=== PATIENT | female | born 1980 | race Two or more races ===

== ENCOUNTER 2016-12-26 12:46 | Emergency (ER) | payer OTHER ==
[2016-12-26 12:55] VITALS: TEMP 98.1; BMI 23.9
[2016-12-26] MEDS ORDERED: KETOROLAC TROMETHAMINE 30 MG/1 ML VIAL IVPUSH ONE (13:38)
[2016-12-26] MEDS ORDERED: METOCLOPRAMIDE HCL INJECTION 10 MG/2 ML VIAL IVPB ONE (13:38)
[2016-12-26] MEDS ORDERED: SODIUM CHLORIDE 1,000 ML IV STA (13:38)
[2016-12-26] MEDS ORDERED: KETOROLAC TROMETHAMINE 30 MG/1 ML VIAL ONE (13:40)
[2016-12-26] MEDS ORDERED: METOCLOPRAMIDE HCL INJECTION 10 MG/2 ML VIAL ONE (13:40)
[2016-12-26 14:19] LABS: URINE APPEARANCE CLEAR; URINE BILIRUBIN NEGATIVE (NEGATIVE); URINE COLOR STRAW; URINE GLUCOSE (UA) NEGATIVE (NEGATIVE); URINE KETONE NEGATIVE (NEGATIVE); URINE LEUK ESTERASE NEGATIVE (NEGATIVE); URINE NITRITE NEGATIVE (NEGATIVE); URINE PROTEIN NEGATIVE (NEGATIVE); URINE UROBILINOGEN NEGATIVE E.U./dl (0.2-1.0)
[2016-12-26 14:22] LABS: URINE BLOOD 1+ (NEGATIVE)
--- NOTE | 2016-12-26 14:33 | PDOC ---
History of Present Illness - General Chief Complaint: Headache Stated Complaint: HEADACHE, ARM PAIN Time Seen by Provider: 12/26/16 13:27 History Source: Patient Exam Limitations: No Limitations - History of Present Illness Initial Comments: 12/26/16 13:33 36-year-old female with history of migraines followed by Dr. Milligan presents to the ED with complaints of occipital throbbing pressure for the past 2 days unrelieved with serous that. Patient states has had headaches worse than this in the past associated with nausea and lightheadedness but could not get to see Dr. Milligan and so came to the ER. Patient also complaining of left wrist pain secondary to carpal tunnel and requesting medicine for the discomfort. Patient states is an appointment with orthopedist on the of this month. Patient has no other complaints different from previous episodes. Patient denies fever, chills, recent head injury, recent illness, visual changes, or neck stiffness. Timing/Duration: reports: constant Severity: Yes: moderate Associated Symptoms: reports: nausea/vomiting. denies: numbness in legs/feet, paresthesia, weakness Past History - Past Medical History Allergies/Adverse Reactions: Allergies Allergy/AdvReac Type Severity Reaction Status Date / Time Shellfish Allergy Rash Verified 12/26/16 14:20 Home Medications: Ambulatory Orders NK [No Known Home Medication] 12/26/16 Asthma: No Diabetes: No HTN: No Hypercholesterolemia: No Suicide Attempt (Hx): No Thyroid Disease: Yes (HYPO) Other medical history: MIGRAINES, VERTIGO - Surgical History Cholecystectomy: Yes - Reproductive History LMP Normal: Yes Is Patient Now?: No Spontaneous : 0 - Immunization History Immunization Up to Date: Yes - Psycho/Social/Smoking Cessation Hx Anxiety: Yes Suicidal Ideation: No Smoking Status: No Smoking History: Never smoked Have you smoked in the past 12 months: No Number of Cigarettes Smoked Daily: 0 Hx Alcohol Use: No Drug/Substance Use Hx: No Substance Use Type: None Patient Lives Alone: No Lives with/in: spouse/SO Neuro Specific PMHX - Complaint Specific PMHX Migraine: Yes Review of Systems - Review of Systems Able to Perform ROS?: Yes Constitutional: No: Symptoms Reported HEENTM: No: Symptoms Reported Respiratory: No: Symptoms reported Cardiac (ROS): Yes: Lightheadedness ABD/GI: Yes: Nausea : No: Symptoms Reported Musculoskeletal: No: Symptoms Reported Integumentary: No: Symptoms Reported Neurological: Yes: Headache Endocrine: No: Symptoms Reported Hematologic/Lymphatic: No: Symptoms Reported *Physical Exam - Vital Signs Last Vital Signs Temp Pulse Resp BP Pulse Ox 98.1 F 71 18 134/86 99 12/26/16 12:50 12/26/16 12:50 12/26/16 12:50 12/26/16 12:50 12/26/16 12:50 - Physical Exam General Appearance: Yes: Nourished, Appropriately Dressed. No: Apparent Distress HEENT: positive: EOMI, KIRTI, TMs Normal, Pharynx Normal. negative: Pale Conjunctivae Neck: positive: Normal Thyroid, Supple. negative: Tender, Decreased range of motion Cardiovascular: positive: Regular Rhythm, Regular Rate. negative: Murmur Gastrointestinal/Abdominal: positive: Soft. negative: Tenderness Extremity: positive: Normal Capillary Refill Integumentary: positive: Normal Color, Warm, Moist Neurologic: positive: Motor Strength 5/5 (ambulatory) ED Treatment Course - ADDITIONAL ORDERS Additional order review: Laboratory Results 12/26/16 14:00 Urine Color Straw Urine Appearance Clear Urine pH 6.0 Ur Specific [place] 1.005 Urine Protein Negative Urine Glucose (UA) Negative Urine Ketones Negative Urine Blood 1+ H Urine Nitrite Negative Urine Bilirubin Negative Urine Urobilinogen Negative Ur Leukocyte Esterase Negative Urine HCG, Qual Negative Medical Decision Making - Medical Decision Making 12/26/16 13:38 Patient with history of migraines and atypical presentation presents with occipital pressure associated with nausea and lightheadedness. Patient appears set for the past 2 days with minimal improvement. Patient is followed by Dr. Milligan neurologist. Patient exam had no neural focal deficits and complaining of light sensitivity during my exam. Patient ordered for urine since she was unaware of her status and patient will receive Toradol, Reglan and IV fluids. 12/26/16 14:39 Laboratory Tests 12/26/16 14:00 Urine Blood 1+ H Urine Nitrite Negative Urine HCG, Qual Negative 12/26/16 15:26 Patient states feeling much better with no complaints presently. Will discharge patient home to continue with fioricet and follow-up with neurologist. *DC/Admit/Observation/Transfer Diagnosis at time of Disposition: Migraine Qualifiers: Migraine type: without aura Status migrainosus presence: without status migrainosus Intractability: intractable Qualified Code(s): G43.019 - Migraine without aura, intractable, without status migrainosus - Discharge Dispostion Disposition: HOME Condition at time of disposition: Improved - Referrals Referrals: Yael Dent MD [Staff Physician] - - Patient Instructions Printed Discharge Instructions: DI for Migraine Additional Instructions: Please avoid triggers and try to stay in a cool quite dark place for the next 24 hours to avoid rebound migraine. Continue with her medication prescribed by your neurologist and follow-up with the orthopedist as scheduled next week. Return to ED if symptoms return or worsen
[2016-12-26 14:51] LABS: URINE BACTERIA FEW /hpf (NONE SEEN); URINE RBC <1 /hpf (0-3); URINE WBC 1 /hpf (3-5)
[2016-12-26 15:41] VITALS: BP 114/73; PULSE 77
== END 2016-12-26 15:40 | disposition home or self-care (01) ==
LOC: JER 12:46
PROC: 3E0337Z Introduction of Electrolytic and Water Balance Substance into Peripheral Vein, Percutaneous Approach (ICD-10-PCS; principal; 2016-12-26)
PROC: 3E0333Z Introduction of Anti-inflammatory into Peripheral Vein, Percutaneous Approach (ICD-10-PCS; 2016-12-26)
PROC: 3E033GC Introduction of Other Therapeutic Substance into Peripheral Vein, Percutaneous Approach (ICD-10-PCS; 2016-12-26)
DX: G43.019 Migraine without aura, intractable, without status migrainosus (principal); G56.02 Carpal tunnel syndrome, left upper limb; E03.9 Hypothyroidism, unspecified
CPT/HCPCS: 81003; 81015; 84703; 99282-25

== ENCOUNTER 2017-04-02 02:55 | Emergency (ER) | payer OTHER ==
[2017-04-02 03:16] VITALS: BP 144/101; PULSE 76; TEMP 98.3; BMI 24.7
--- NOTE | 2017-04-02 03:55 | PDOC ---
History of Present Illness - General Chief Complaint: Pain Stated Complaint: ABDOMINAL PAIN Time Seen by Provider: 04/02/17 03:03 - History of Present Illness Initial Comments: 04/02/17 03:42 CHIEF COMPLAINT: suprapubic pain HISTORY OF PRESENT ILLNESS: 36 yo F with no PMH presents to ED with suprapubic pain x 2 hours. Patient states she woke up with cramping to her lower abdomen that "almost feels like contractions." She states that she took Tylenol approximately 1 hour ago which "took the edge off the pain." She denies any vaginal bleeding, hematuria, dysuria, or urinary frequency. Her LMP was . PAST MEDICAL HISTORY: Denies past medical history FAMILY HISTORY: Denies SOCIAL HISTORY: Denies tobacco, alcohol, illicit drug use. SURGICAL HISTORY: Denies ALLERGIES: acetaminophen, oxycodone, shellfish REVIEW OF SYSTEMS General/Constitutional: Denies fever or chills. Denies weakness, weight change. HEENT: Denies change in vision. Denies ear pain or discharge. Denies sore throat. Cardiovascular: Denies chest pain or shortness of breath. Respiratory: Denies cough, wheezing, or hemoptysis. Gastrointestinal: Lower abdominal pain. Denies nausea, vomiting, diarrhea or constipation. Denies rectal bleeding. Genitourinary: Denies dysuria, frequency, or change in urination. Musculoskeletal: Denies joint or muscle swelling or pain. Denies neck or back pain. Skin and breasts: Denies rash or easy bruising. Neurologic: Denies headache, vertigo, loss of consciousness, or loss of sensation. PHYSICAL EXAM General Appearance: Well-appearing, appropriately dressed. No apparent distress. HEENT: EOMI, PERRLA. Respiratory/Chest: Lungs CTAB. Cardiovascular: RRR. S1, S2. Gastrointestinal/Abdominal: Midsuprapubic tenderness. Normal bowel sounds. Abdomen soft, non-distended. No tenderness or rebound tenderness. No organomegaly, pulsatile mass, guarding, hernia, hepatomegaly, splenomegaly. Musculoskeletal/Extremities: Normal inspection. FROM of all extremities, normal capillary refill. Pelvis Stable. No CVA tenderness. No tenderness to extremities, pedal edema, swelling, erythema or deformity. Integumentary: Appropriate color, dry, warm. No cyanosis, erythema, jaundice or rash Neurologic: optical effects line up person II-XII intact. Fully oriented, alert. Appropriate mood/affect. Motor strength 5/5. No appreciable EOM palsy, facial droop or sensory deficit. 04/02/17 05:04 Past History - Past Medical History Allergies/Adverse Reactions: Allergies Allergy/AdvReac Type Severity Reaction Status Date / Time acetaminophen [From Percocet] Allergy Severe Itching Verified 04/02/17 04:16 oxycodone HCl [From Percocet] Allergy Severe Itching Verified 04/02/17 04:16 Shellfish Allergy Rash Verified 04/02/17 04:16 Home Medications: Ambulatory Orders Levothyroxine [Synthroid -] 175 mcg PO DAILY 04/02/17 Norethindrone [Tania-Be] 0.35 mg PO DAILY 04/02/17 Asthma: No Diabetes: No HTN: No Hypercholesterolemia: No Suicide Attempt (Hx): No Thyroid Disease: Yes (Hypothyroid) Other medical history: Vertigo, migrains - Surgical History Cholecystectomy: Yes - Reproductive History Spontaneous : 0 - Immunization History Immunization Up to Date: Yes - Psycho/Social/Smoking Cessation Hx Anxiety: Yes Suicidal Ideation: No Smoking Status: No Smoking History: Never smoked Have you smoked in the past 12 months: No Number of Cigarettes Smoked Daily: 0 Information on smoking cessation initiated: No Hx Alcohol Use: No Drug/Substance Use Hx: No Substance Use Type: None Abd/GI Specific PMHX - Complaint Specific PMHX Colitis: No Diverticulitis: No Gall Bladder Disease: No GERD: No Hepatitis: No Irritable Bowel Synd (IBS): No Pancreatitis: No GI Ulcer Disease: No *Physical Exam - Vital Signs Last Vital Signs Temp Pulse Resp BP Pulse Ox 98.3 F 76 19 144/101 96 04/02/17 03:13 04/02/17 03:13 04/02/17 03:13 04/02/17 03:13 04/02/17 03:13 ED Treatment Course - LABORATORY CBC & Chemistry Diagram: 04/02/17 04:07 04/02/17 04:07 Medical Decision Making - Medical Decision Making 04/02/17 05:10 36 yo F with no PMH presents to ED with suprapubic pain x 2 hours. -CBC, CMP, lipase -UA, UCx Labs unremarkable. Patient states she is feeling better after taking Tylenol at home. Advised pt to f/u with business administration program chair and of signs and symptoms for return to ER; patient verbalized understanding and agrees to plan *DC/Admit/Observation/Transfer Diagnosis at time of Disposition: Suprapubic pain - Discharge Dispostion Admit: No - Patient Instructions Additional Instructions: Please take ibuprofen for your discomfort. Follow up with your juice scaleman as discussed. If you develop any vaginal bleeding, severe pain to one side, or any new or worsening symptoms, please return to the ER.
[2017-04-02 04:15] LABS: BASOPHIL 0.4 % (0-2.0); EOSINOPHIL 1.6 % (0-4.5); MCH 30.3 pg (25.7-33.7); MCHC 33.4 g/dl (32.0-36.0); MEAN CELL VOLUME 90.7 fl (80-96); MEAN PLT VOLUME 8.4 fl (7.5-11.1); NEUTROPHILS 60.2 % (42.8-82.8); PLATELET COUNT 218 K/MM3 (134-434); RDW 12.4 % (11.6-15.6); WHITE BLOOD COUNT 9.3 K/mm3 (4.0-10.0)
[2017-04-02 04:47] LABS: ALBUMIN 3.6 g/dl (3.4-5.0); ALK PHOS 47 U/L (45-117); ANION GAP 8 (8-16); BILIRUBIN,TOTAL 0.4 mg/dL (0.2-1.0); CALCIUM 8.4 mg/dL (8.5-10.1); CO2 26 mmol/L (21-32); CREATININE 0.5 mg/dL (0.55-1.02); GLUCOSE,RANDOM 89 mg/dL (74-106); SGPT/ALT 30 U/L (12-78); TOT PROT 6.8 g/dl (6.4-8.2)
[2017-04-02 04:49] LABS: SGOT/AST 39 U/L (15-37)
--- NOTE | 2017-04-02 05:33 | PDOC ---
*Physical Exam - Vital Signs Last Vital Signs Temp Pulse Resp BP Pulse Ox 98.3 F 76 19 144/101 98 04/02/17 03:13 04/02/17 03:13 04/02/17 03:13 04/02/17 03:13 04/02/17 03:41 ED Treatment Course - LABORATORY CBC & Chemistry Diagram: 04/02/17 04:07 04/02/17 04:07 - ADDITIONAL ORDERS Additional order review: Laboratory Results 04/02/17 04:07 Sodium 141 Potassium 3.8 Chloride 107 Carbon Dioxide 26 Anion Gap 8 BUN 11 D Creatinine 0.5 L Creat Clearance w eGFR > 60 Random Glucose 89 Calcium 8.4 L Total Bilirubin 0.4 D AST 39 H D ALT 30 D Alkaline Phosphatase 47 D Total Protein 6.8 Albumin 3.6 Lipase 182 04/02/17 04:07 RBC 4.16 MCV 90.7 MCHC 33.4 RDW 12.4 MPV 8.4 Neutrophils % 60.2 D Lymphocytes % 34.1 D Monocytes % 3.7 L Eosinophils % 1.6 Basophils % 0.4 Medical Decision Making - Medical Decision Making 04/02/17 05:33 agree with care from DIMITRI Delatorre *DC/Admit/Observation/Transfer Diagnosis at time of Disposition: Suprapubic pain - Patient Instructions Additional Instructions: Please take ibuprofen for your discomfort. Follow up with your stitching department supervisor as discussed. If you develop any vaginal bleeding, severe pain to one side, or any new or worsening symptoms, please return to the ER.
[2017-04-02 05:35] LABS: URINE APPEARANCE CLEAR; URINE BILIRUBIN NEGATIVE (NEGATIVE); URINE BLOOD NEGATIVE (NEGATIVE); URINE COLOR STRAW; URINE GLUCOSE (UA) NEGATIVE (NEGATIVE); URINE KETONE NEGATIVE (NEGATIVE); URINE LEUK ESTERASE NEGATIVE (NEGATIVE); URINE NITRITE NEGATIVE (NEGATIVE); URINE PROTEIN NEGATIVE (NEGATIVE); URINE UROBILINOGEN NEGATIVE E.U./dl (0.2-1.0)
== END 2017-04-02 06:18 | disposition home or self-care (01) ==
LOC: JER 02:55
DX: R10.30 Lower abdominal pain, unspecified (principal); E03.9 Hypothyroidism, unspecified
CPT/HCPCS: 36415; 80053; 81003; 83690; 84703; 85025; 87086; 99282-25